=== PATIENT | male | born 1985 ===

== ENCOUNTER 2016-11-14 01:57 | Emergency (ER) | payer MEDICAID ==
[2016-11-14 02:10] VITALS: RESP 16
[2016-11-14 02:35] VITALS: BP 153/97; PULSE 76; TEMP 98.5; O2SAT 98
--- NOTE | 2016-11-14 02:39 | ED PDOC ---
HPI: General Adult Time Seen by Provider: 11/14/16 02:15 Chief Complaint (Nursing): GI Problem History Per: Patient Additional Complaint(s): Pt. states for the past 6 months he's had rectal pain associated with intermittent bright red rectal bleeding present only with wiping. Denies melena , hematochezia, weakness, fever, hx of GI bleeding, hx of anemia, abdominal pain , N/V/D. Of note, pt. is currently under arrest. Denies SI/HI, hallucinations. Past Medical History Reviewed: Historical Data, Nursing Documentation, Vital Signs Vital Signs: Last Vital Signs Temp 98.5 F 11/14/16 02:33 Pulse 76 11/14/16 02:33 Resp 16 11/14/16 02:09 BP 153/97 H 11/14/16 02:33 Pulse Ox 98 11/14/16 02:44 - Medical History PMH: Pancreatitis - Family History Family History: States: No Known Family Hx - Immunization History Hx Tetanus Toxoid Vaccination: No - Home Medications Home Medications: Ambulatory Orders Medication Instructions Recorded Ondansetron [Zofran Odt] 4 mg PO Q8H PRN #15 odt 07/09/15 Acetaminophen with Codeine 1 tab PO Q6 PRN #10 tab 01/08/16 [Tylenol with Codeine No. 3 300 mg-30 mg] Amoxicillin/Clavulanate [Augmentin 1 tab PO BID #14 tab 01/08/16 875 MG-125 MG] - Allergies Allergies/Adverse Reactions: Allergies Allergy/AdvReac Type Severity Reaction Status Date / Time ibuprofen Allergy PAIN Verified 11/14/16 02:08 tramadol Allergy RASH Verified 11/14/16 02:08 Review of Systems ROS Statement: Except As Marked, All Systems Reviewed And Found Negative Gastrointestinal: Positive for: Rectal Pain Physical Exam - Physical Exam Appears: Positive for: Well, Non-toxic, No Acute Distress Rectal: Positive for: Other (multiple skin colored peduculated masses with pinpoint non-pulsatile bleeding noted) - ECG O2 Sat by Pulse Oximetry: 98 - Progress ED Course And Treament: Pt. instructed to go to [facility] for removal/biopsy of mass. Disposition - Clinical Impression Clinical Impression: Genital warts - Patient ED Disposition Is Patient to be Admitted: No - Disposition Referrals: [facility] [Outside] Disposition: Discharged/Transfer to Law Enforcement Disposition Time: 03:20 Condition: STABLE Additional Instructions: Patient is medically and psychiatrically cleared for incarceration. Instructions: Genital Warts (ED)
== END 2016-11-14 03:50 ==
LOC: H.ER 01:57
DX: A63.0 Anogenital (venereal) warts (principal); K85.90 Acute pancreatitis without necrosis or infection, unspecified

== ENCOUNTER 2017-10-25 09:20 | Emergency (ER) | payer MEDICAID ==
[2017-10-25 09:38] VITALS: BMI 37.5
--- NOTE | 2017-10-25 10:26 | ED PDOC ---
HPI: Skin/Bite Injury Time Seen by Provider: 10/25/17 10:14 Chief Complaint (Nursing): Abnormal Skin Integrity Chief Complaint (Provider): Abscess - Left axilla x 4 days History Per: Patient History/Exam Limitations: no limitations Onset/Duration Of Symptoms: Days Current Symptoms Are (Timing): Still Present Quality Of Symptoms: Swollen, Draining Severity: Moderate Pain Scale Rating Of: 5 Additional Complaint(s): 32 yo male with no known medical problems presents with abscess of the left axilla. PT states it began like a small pimple 4 days ago and began draining some puss and blood this morning. No fever/chills. Pt has not been doing warm compresses or taking anything for pain or swelling. Past Medical History Reviewed: Historical Data, Nursing Documentation, Vital Signs Vital Signs: Last Vital Signs Temp 97 F L 10/25/17 09:37 Pulse 87 10/25/17 09:37 Resp 20 10/25/17 12:18 BP 159/96 H 10/25/17 09:37 Pulse Ox 98 10/25/17 10:26 - Medical History PMH: Pancreatitis - Surgical History Surgical History: No Surg Hx - Family History Family History: States: Unknown Family Hx - Living Arrangements Living Arrangements: With Family - Social History Current smoker - smoking cessation education provided: No Alcohol: Occasional Drugs: Denies - Immunization History Hx Tetanus Toxoid Vaccination: No - Home Medications Home Medications: Ambulatory Orders Medication Instructions Recorded Ondansetron [Zofran Odt] 4 mg PO Q8H PRN #15 odt 07/09/15 Acetaminophen with Codeine 1 tab PO Q6 PRN #10 tab 01/08/16 [Tylenol with Codeine No. 3 300 mg-30 mg] Amoxicillin/Clavulanate [Augmentin 1 tab PO BID #14 tab 01/08/16 875 MG-125 MG] Clindamycin [Cleocin] 300 mg PO QID #40 cap 10/25/17 oxyCODONE/Acetaminophen [Percocet 1 ea PO Q6H PRN #15 tab 10/25/17 5/325 mg Tab] - Allergies Allergies/Adverse Reactions: Allergies Allergy/AdvReac Type Severity Reaction Status Date / Time ibuprofen Allergy PAIN Verified 10/25/17 09:48 tramadol Allergy RASH Verified 10/25/17 09:48 Review of Systems ROS Statement: Except As Marked, All Systems Reviewed And Found Negative Constitutional: Negative for: Fever, Chills Skin: Positive for: Other Physical Exam - Reviewed Nursing Documentation Reviewed: Yes Vital Signs Reviewed: Yes - Physical Exam Appears: Positive for: Well, Non-toxic, No Acute Distress Head Exam: Positive for: ATRAUMATIC, NORMAL INSPECTION, NORMOCEPHALIC Skin: Positive for: Warm. Negative for: Normal Color (LArge indurated abscess of the left axilla with central pin-point opening drainage blood; approx 6 inches x 4 inches ) Eye Exam: Positive for: Normal appearance ENT: Positive for: Normal ENT Inspection Neck: Positive for: Normal Respiratory: Negative for: Accessory Muscle Use, Respiratory Distress Back: Positive for: Normal Inspection Extremity: Positive for: Normal ROM Neurologic/Psych: Positive for: Alert, Oriented - Laboratory Results Result Diagrams: 10/25/17 10:46 10/25/17 10:46 - ECG O2 Sat by Pulse Oximetry: 98 Disposition - Clinical Impression Clinical Impression: Abscess - Patient ED Disposition Is Patient to be Admitted: No Counseled Patient/Family Regarding: Diagnosis, Need For Followup, Rx Given - Disposition Disposition: Routine/Home Disposition Time: 12:23 Condition: STABLE Additional Instructions: Please return or see your PMD in 2-3 days for re-evaluation Prescriptions: Clindamycin [Cleocin] 300 mg PO QID #40 cap oxyCODONE/Acetaminophen [Percocet 5/325 mg Tab] 1 ea PO Q6H PRN #15 tab PRN Reason: Pain, Severe (8-10) Instructions: Skin Abscess Forms: [employer] (Greenlandic)
[2017-10-25] MEDS ORDERED: Sodium Chloride 0.9% 1,000 ML IV STA (10:27)
[2017-10-25] MEDS ORDERED: Clindamycin 600mg/50ml D5W 600 MG/50 ML VIAL IVPB ONE (10:45)
[2017-10-25] MEDS ORDERED: Clindamycin 600mg/50ml NS 600 MG/50 ML BAG IVPB ONE (10:49)
[2017-10-25 10:54] LABS: BASO # 0.1 K/uL (0.0-0.2); BASO % 0.4 % (0.0-2.0); EOS # 0.1 K/uL (0.0-0.7); EOS % 0.5 % (0.0-4.0); HEMOGLOBIN 13.2 g/dL (12.0-18.0); LYMPH # 2.7 K/uL (1.0-4.3); LYMPH % 16.3 % (20.0-40.0); MEAN CELL VOLUME 81.5 fl (80.0-94.0); MEAN CORPUSCULAR HEMOGLOBIN 26.9 pg (27.0-31.0); MEAN CORPUSCULAR HGB CONC 33.1 g/dL (33.0-37.0); MEAN PLATELET VOLUME 8.5 fl (7.2-11.7); MONO # 1.1 K/uL (0.0-0.8); MONO % 6.9 % (0.0-10.0); NEUT # 12.6 K/uL (1.8-7.0); NEUT % 75.9 % (50.0-75.0); RBC 4.88 Mil/uL (4.40-5.90); RED CELL DISTRIBUTION WIDTH 13.5 % (11.5-14.5); WHITE BLOOD COUNT 16.5 K/uL (4.8-10.8)
[2017-10-25 11:05] LABS: ALB/GLOB RATIO 1.2 (1.0-2.1); ALBUMIN 4.2 g/dL (3.5-5.0); ALT/SGPT 86 U/L (21-72); AST/SGOT 59 U/L (17-59); BLOOD UREA NITROGEN 6 mg/dl (9-20); CALCIUM 9.2 mg/dL (8.4-10.2); GFR AFRICAN-AMERICAN > 60; GFR NON-AFRICAN AMERICAN > 60
[2017-10-25] MEDS ORDERED: Oxycodone/Acetaminophen 5/325 mg Tab PO STA (11:11)
[2017-10-25] MEDS ORDERED: Oxycodone/Acetaminophen 5/325 mg Tab ONE (12:25)
[2017-10-25 12:31] VITALS: BP 136/84; PULSE 88; RESP 16; TEMP 98.9; O2SAT 100
== END 2017-10-25 12:35 | disposition home or self-care (01) ==
LOC: H.ER 09:20
DX: L02.412 Cutaneous abscess of left axilla (principal); K85.90 Acute pancreatitis without necrosis or infection, unspecified
CPT/HCPCS: 80053; 85025; 87040; 96365; 99283; J7040

== ENCOUNTER 2018-05-12 03:22 | Emergency (ER) | payer MEDICAID ==
[2018-05-12 03:22] VITALS: BMI 37.5
[2018-05-12 03:39] VITALS: BP 158/95; PULSE 103; RESP 18; TEMP 97.6; O2SAT 96
[2018-05-12] MEDS ORDERED: Sodium Chloride 0.9% 1,000 ML IV STA (04:00)
--- NOTE | 2018-05-12 04:17 | ED PDOC ---
HPI: Abdomen Time Seen by Provider: 05/12/18 03:37 Chief Complaint (Nursing): Chest Pain Chief Complaint (Provider): Abdominal Pain History Per: Patient History/Exam Limitations: no limitations Onset/Duration Of Symptoms: Hrs (since midnight) Current Symptoms Are (Timing): Still Present Additional Complaint(s): 33 year old male with pmhx of pancreatitis presents to the ED for evaluation of abdominal pain radiating to his chest associated with nausea since midnight. Otherwise, denies vomiting and diarrhea. Of note, patient states in light of his pancreatitis, he quit drinking alcohol one month ago. PMD: none provided Past Medical History Reviewed: Historical Data, Nursing Documentation, Vital Signs Vital Signs: Last Vital Signs Temp 97.6 F 05/12/18 03:33 Pulse 103 H 05/12/18 03:33 Resp 18 05/12/18 03:33 BP 158/95 H 05/12/18 03:33 Pulse Ox 96 05/12/18 03:33 - Medical History PMH: Pancreatitis - Surgical History Surgical History: No Surg Hx - Family History Family History: States: Unknown Family Hx - Social History Current smoker - smoking cessation education provided: Yes Alcohol: None Drugs: Cannabis - Immunization History Hx Tetanus Toxoid Vaccination: No - Home Medications Home Medications: Ambulatory Orders Medication Instructions Recorded Ondansetron [Zofran Odt] 4 mg PO Q8H PRN #15 odt 07/09/15 Acetaminophen with Codeine 1 tab PO Q6 PRN #10 tab 01/08/16 [Tylenol with Codeine No. 3 300 mg-30 mg] Amoxicillin/Clavulanate [Augmentin 1 tab PO BID #14 tab 01/08/16 875 MG-125 MG] Clindamycin [Cleocin] 300 mg PO QID #40 cap 10/25/17 oxyCODONE/Acetaminophen [Percocet 1 ea PO Q6H PRN #15 tab 10/25/17 5/325 mg Tab] Dicyclomine [Bentyl] 20 mg PO Q12 PRN #20 tab 05/12/18 - Allergies Allergies/Adverse Reactions: Allergies Allergy/AdvReac Type Severity Reaction Status Date / Time ibuprofen Allergy PAIN Verified 03/04/18 19:20 tramadol Allergy RASH Verified 03/04/18 19:20 Review of Systems ROS Statement: Except As Marked, All Systems Reviewed And Found Negative Gastrointestinal: Positive for: Nausea, Abdominal Pain (radiating into chest). Negative for: Vomiting, Diarrhea Physical Exam - Reviewed Nursing Documentation Reviewed: Yes Vital Signs Reviewed: Yes - Physical Exam Appears: Positive for: No Acute Distress Head Exam: Positive for: ATRAUMATIC, NORMOCEPHALIC Skin: Positive for: Normal Color, Warm, Dry Eye Exam: Positive for: Normal appearance, EOMI, PERRL ENT: Positive for: Normal ENT Inspection Neck: Positive for: Normal, Painless ROM, Supple Cardiovascular/Chest: Positive for: Regular Rate, Rhythm Respiratory: Positive for: Normal Breath Sounds. Negative for: Respiratory Distress Gastrointestinal/Abdominal: Positive for: Normal Exam, Soft, Tenderness (mild diffuse tenderenss to abdomen) Back: Positive for: Normal Inspection Extremity: Positive for: Normal ROM Neurologic/Psych: Positive for: Alert, Oriented (x3) - Laboratory Results Result Diagrams: 05/12/18 04:57 05/12/18 04:57 - ECG O2 Sat by Pulse Oximetry: 96 (RA) Pulse Ox Interpretation: Normal Medical Decision Making Medical Decision Making: Time: 357 Initial Impression: 33 year old male with abdominal pain in setting of previous pancreatitis Initial Plan: --CT abdominal and pelvis with IV contrast --EKG --Alcohol serum --CMP --Drug screen --Lipase chemistry --U-dip --CBC with differential --Normal saline IV --Pepcid 20mg IV --Zofran 4mg IV --Accucheck 0641 Labs reviewed and otherwise not significant except for utox positive for cocaine and opiates. Patient heavily instructed to abstain from illicit substance use. Stable for discharge with diagnosis of abdominal pain and substance abuse. Scribe Attestation: Documented by Emmanuelle Chandler, acting as a scribe for Jeremias Bowers MD. Provider Scribe Attestation: All medical record entries made by the Scribe were at my direction and personally dictated by me. I have reviewed the chart and agree that the record accurately reflects my personal performance of the history, physical exam, medical decision making, and the department course for this patient. I have also personally directed, reviewed, and agree with the discharge instructions and disposition. Disposition - Clinical Impression Clinical Impression: Abdominal pain - Patient ED Disposition Is Patient to be Admitted: No Counseled Patient/Family Regarding: Studies Performed, Diagnosis, Rx Given - Disposition Disposition: Routine/Home Disposition Time: 06:43 Condition: STABLE Prescriptions: Dicyclomine [Bentyl] 20 mg PO Q12 PRN #20 tab PRN Reason: abdominal pain Instructions: Acute Abdomen (Belly Pain) Forms: [facility] (Latvian)
[2018-05-12 05:07] LABS: BASO # 0.1 K/uL (0.0-0.2); BASO % 0.9 % (0.0-2.0); EOS # 0.1 K/uL (0.0-0.7); EOS % 0.6 % (0.0-4.0); HEMOGLOBIN 14.5 g/dL (12.0-18.0); LYMPH # 3.1 K/uL (1.0-4.3); LYMPH % 26.9 % (20.0-40.0); MEAN CELL VOLUME 80.7 fl (80.0-94.0); MEAN CORPUSCULAR HEMOGLOBIN 26.8 pg (27.0-31.0); MEAN CORPUSCULAR HGB CONC 33.2 g/dL (33.0-37.0); MEAN PLATELET VOLUME 8.5 fl (7.2-11.7); MONO # 0.8 K/uL (0.0-0.8); MONO % 7.2 % (0.0-10.0); NEUT # 7.5 K/uL (1.8-7.0); NEUT % 64.4 % (50.0-75.0); NRBC % 0.2 % (0.0-0.0); RBC 5.4 Mil/uL (4.40-5.90); RED CELL DISTRIBUTION WIDTH 14.1 % (11.5-14.5); WHITE BLOOD COUNT 11.6 K/uL (4.8-10.8)
[2018-05-12 05:18] LABS: ALB/GLOB RATIO 1.2 (1.0-2.1); ALBUMIN 4.8 g/dL (3.5-5.0); ALT/SGPT 128 U/L (21-72); AST/SGOT 77 U/L (17-59); BLOOD UREA NITROGEN 10 mg/dl (9-20); CALCIUM 9.9 mg/dL (8.4-10.2); GFR NON-AFRICAN AMERICAN > 60; LIPASE 92 U/L (23-300)
[2018-05-12] MEDS ORDERED: Iohexol 300 100 ML IJ ONE (05:27)
[2018-05-12 05:28] LABS: BARBITURATES, UR NEGATIVE (NEGATIVE); BENZODIAZEPINES, UR NEGATIVE (NEGATIVE); OPIATES, UR POSITIVE (NEGATIVE); PHENCYCLIDINE, UR NEGATIVE (NEGATIVE)
[2018-05-12] MEDS ORDERED: Sodium Chloride 0.9% 50 ML IV ONE (05:28)
--- NOTE | 2018-05-12 10:10 | CT ---
Date of service: 05/12/2018 PROCEDURE: CT Abdomen and Pelvis with contrast HISTORY: abd pain; hx of pancreatitis COMPARISON: Comparison is made with 07/09/2015 TECHNIQUE: Contrast dose: 95 cc of Omnipaque 300 intravenously. Axial and reformatted coronal and sagittal CT images of the abdomen and pelvis were obtained after IV contrast administration. Radiation dose: Total exam DLP = 898.99 mGy-cm. This CT exam was performed using one or more of the following dose reduction techniques: Automated exposure control, adjustment of the mA and/or kV according to patient size, and/or use of iterative reconstruction technique. FINDINGS: LOWER THORAX: Unremarkable. LIVER: Mild hepatomegaly and mild hepatic steatosis are again noted. GALLBLADDER AND BILE DUCTS: No CT evidence of cholecystitis or biliary obstruction. PANCREAS: Unremarkable. No gross lesion or ductal dilatation. SPLEEN: Unremarkable. ADRENALS: Unremarkable. No mass. KIDNEYS AND URETERS: Unremarkable. No hydronephrosis. No solid mass. VASCULATURE: Unremarkable. No aortic aneurysm. No aortic atherosclerotic calcification or mural plaque present. BOWEL: Unremarkable. No obstruction. No gross mural thickening. APPENDIX: Normal appendix. PERITONEUM: Unremarkable. No free fluid. No free air. LYMPH NODES: Unremarkable. No enlarged lymph nodes. BLADDER: Incomplete distention of the urinary bladder demonstrate mild wall thickening. REPRODUCTIVE: Unremarkable. BONES: No acute fracture. OTHER FINDINGS: None. IMPRESSION: No CT evidence of acute cholecystitis pancreatitis or appendicitis. No CT evidence of acute pathology in the abdomen and pelvis. Preliminary report was submitted by [facility] contains concordant findings.
--- NOTE | 2018-05-12 14:55 | CARD ---
APPROVED REPORT Date of service: 05/12/2018 EKG Measurement Heart [id number] <Conclusion> Sinus tachycardia Borderline ECG
== END 2018-05-12 07:35 | disposition home or self-care (01) ==
LOC: H.ER 03:22
DX: R10.9 Unspecified abdominal pain (principal)
CPT/HCPCS: 74177; 80053; 80320; 80324; 80345; 80346; 80349; 80353; 80358; 80361; 83690; 83992; 85025; 93005; 99283; J2405; J7030; Q9967

== ENCOUNTER 2018-07-09 14:03 | Emergency (ER) | payer MEDICAID ==
[2018-07-09 14:04] VITALS: BMI 37.5
[2018-07-09 14:27] VITALS: O2SAT 99
--- NOTE | 2018-07-09 15:02 | ED PDOC ---
HPI: Psych/Substance Abuse Time Seen by Provider: 07/09/18 14:42 Chief Complaint (Nursing): Psychiatric Evaluation Chief Complaint (Provider): Psychiatric Evaluation History Per: Patient History/Exam Limitations: no limitations Onset/Duration Of Symptoms: Intermittent Episodes (x1 week) Current Symptoms Are (Timing): Intermittent Episodes Additional Complaint(s): 33 year old male presents to the ED for a psychiatric evaluation. He states that intermittently for the past week he has been hearing voices, and denies any history of psychiatric illness, but notes that his brother having schizophrenia prompted his visit. Admits to occasional cannabis use. Patient arrived with a bag and suitcase, stating his mother would not let him stay with her, and is requesting that staff put his food in the fridge. Denies suicidal / homicidal ideation, and visual hallucinations. PMD: none provided Past Medical History Reviewed: Historical Data, Nursing Documentation, Vital Signs Vital Signs: Last Vital Signs Temp 98 F 07/09/18 14:24 Pulse 105 H 07/09/18 14:24 Resp 16 07/09/18 14:24 BP 159/103 H 07/09/18 14:24 Pulse Ox 99 07/09/18 14:24 - Medical History PMH: Pancreatitis - Surgical History Surgical History: No Surg Hx - Family History Family History: States: Other Other Family History: brother with schizophrenia - Social History Current smoker - smoking cessation education provided: No Alcohol: None Drugs: Cannabis - Immunization History Hx Tetanus Toxoid Vaccination: No - Home Medications Home Medications: Ambulatory Orders Medication Instructions Recorded Ondansetron [Zofran Odt] 4 mg PO Q8H PRN #15 odt 07/09/15 Acetaminophen with Codeine 1 tab PO Q6 PRN #10 tab 01/08/16 [Tylenol with Codeine No. 3 300 mg-30 mg] Amoxicillin/Clavulanate [Augmentin 1 tab PO BID #14 tab 01/08/16 875 MG-125 MG] Clindamycin [Cleocin] 300 mg PO QID #40 cap 10/25/17 oxyCODONE/Acetaminophen [Percocet 1 ea PO Q6H PRN #15 tab 10/25/17 5/325 mg Tab] Dicyclomine [Bentyl] 20 mg PO Q12 PRN #20 tab 05/12/18 - Allergies Allergies/Adverse Reactions: Allergies Allergy/AdvReac Type Severity Reaction Status Date / Time ibuprofen Allergy PAIN Verified 07/09/18 14:24 tramadol Allergy RASH Verified 07/09/18 14:24 Review of Systems ROS Statement: Except As Marked, All Systems Reviewed And Found Negative Psych: Positive for: Other (auditory hallucinations, no visual hallucinations). Negative for: Suicidal ideation (or homicidal ideation) Physical Exam - Reviewed Nursing Documentation Reviewed: Yes Vital Signs Reviewed: Yes - Physical Exam Appears: Positive for: No Acute Distress Head Exam: Positive for: ATRAUMATIC, NORMOCEPHALIC Skin: Positive for: Normal Color, Warm Eye Exam: Positive for: Normal appearance Neck: Positive for: Normal, Painless ROM, Supple Cardiovascular/Chest: Positive for: Regular Rate, Rhythm Respiratory: Positive for: Normal Breath Sounds. Negative for: Respiratory Distress Gastrointestinal/Abdominal: Positive for: Normal Exam, Soft. Negative for: Tenderness Extremity: Positive for: Normal ROM Neurologic/Psych: Positive for: Alert, Oriented (x3), Other (speaking coherently, not respoding to any internal stimuli) - ECG O2 Sat by Pulse Oximetry: 99 (RA) Pulse Ox Interpretation: Normal - Progress ED Course And Treament: Seen by crisis Cleared for d/c home by Dr. Perdomo Diagnosis Adjustment disorder Urine tox reflects cocaine. Medical Decision Making Medical Decision Making: Time: 1442 Initial Impression: psychiatric evaluation Initial Plan: --Drug screen --Crisis evaluation Scribe Attestation: Documented by Emmanuelle Chandler acting as a scribe for Kyaw Reyna PA-C. Provider Scribe Attestation: All medical record entries made by the Scribe were at my direction and personally dictated by me. I have reviewed the chart and agree that the record accurately reflects my personal performance of the history, physical exam, medical decision making, and the department course for this patient. I have also personally directed, reviewed, and agree with the discharge instructions and disposition. Disposition - Clinical Impression Clinical Impression: Adjustment disorder - Patient ED Disposition Is Patient to be Admitted: No - Disposition Referrals: [facility] [Outside] Disposition: Routine/Home Disposition Time: 16:55 Condition: FAIR Additional Instructions: FOR MENTAL HEALTH SERVICES: [facility] [address] [place] [address] WEDNESDAY-WEDNESDAY: 9AM-8PM WEDNESDAY AND WEDNESDAY: 10AM-6PM WALKS IN ARE ALWAYS WELCOME FOR SNF ASSISTANCE [facility] [address] [place], [place] Instructions: Adjustment Disorder
[2018-07-09 15:58] LABS: BARBITURATES, UR NEGATIVE (NEGATIVE); BENZODIAZEPINES, UR NEGATIVE (NEGATIVE); OPIATES, UR NEGATIVE (NEGATIVE)
[2018-07-09 16:52] LABS: PHENCYCLIDINE, UR NEGATIVE (NEGATIVE)
[2018-07-09 17:53] VITALS: BP 145/91; PULSE 85; RESP 18; TEMP 98.6
== END 2018-07-09 17:04 | disposition home or self-care (01) ==
LOC: H.ER 14:03
DX: F43.20 Adjustment disorder, unspecified (principal)